=== PATIENT | female | born 1990 | race Caucasian/White ===

== ENCOUNTER → 2017-09-23 19:04 | Observation (INO) ==
[2017-09-23 17:37] LABS: Bilirubin,Urine Negative (Negative); Blood,Urine Negative (Negative); Clarity,Urine Clear (Clear); Color,Urine Yellow (Yellow); Glucose,Urine (UA) Normal (Normal); Ketones,Urine Negative (Negative); Leukocyte Esterase,Urine Negative (Negative); Nitrite,Urine Negative (Negative); PH,Urine 6.5 pH Units (5.0-8.0); Protein,Urine Negative (Neg-Trace); Specific Gravity,Urine 1.024 (1.010-1.025); Urobilinogen,Urine Normal (Normal)
[2017-09-23 18:43] LABS: Amphetamine Screen,Urine Negative ng/mL (Cutoff=1000); Barbiturate Screen,Urine Negative ng/mL (Cutoff=200); Benzodiazepines Screen,Urine Negative ng/mL (Cutoff=200); Cannabinoid Screen,Urine Negative ng/mL (Cutoff = 50); Cocaine Screen,Urine Negative ng/mL (Cutoff= 300); Opiate Screen,Urine Negative ng/mL (Cutoff=300); Phencyclidine Screen,Urine Negative ng/mL (Cutoff=25)
--- NOTE | 2017-09-23 18:58 | OB/GYN Progress Note ---
Date of Encounter: 09/23/17 Time of Encounter: 16:30 - Assessment and Plan (1) 20 weeks gestation of Current Visit: Yes Status: Acute Continue care as scheduled labor precautions given Discharge home (2) Abdominal cramping affecting Current Visit: Yes Status: Acute UA-negative May take Mg OTC Subjective - Subjective Principal diagnosis: Pelvic pressure in Interval history: Ms. Willard is a 26-year-old who presents today with complaints of abdominal cramping and pelvic pressure that has been happening for the last 2-3 days. She endorses good movement and denies leakage of fluid and vaginal bleeding. She is concerned that she is in labor. Antepartum ROS: new complaints, movement normal, contractions, no loss of fluid, no vaginal bleeding Objective - Vital Signs Vital Signs: Intake and Output 09/23/17 09/23/17 09/23/17 07:59 15:59 23:59 Other: Weight 80.4 kg Patient Weight 09/23/17 23:59 Weight 80.4 kg - Exam FHR: auscultation normal FHR comments: heart rate 140 No toco activity Auscultation: bilateral: normal Abdomen: Present: normal appearance, soft, gravid Uterus: Present: normal, firm Cervical dilation: 0 Cervix effacement: 0 station: high Comments: SVE per patient request.
== END | disposition home or self-care (01) ==
LOC: 1NENULAB
PROVIDERS: ADMIT Obstetrics & Gynecology; ATTEND Obstetrics & Gynecology

== ENCOUNTER → 2017-10-21 17:52 | Observation (INO) ==
--- NOTE | 2017-10-21 17:58 | OB/GYN Progress Note ---
Date of Encounter: 10/21/17 Time of Encounter: 17:56 - Assessment and Plan (1) 24 weeks gestation of Status: Acute Continue routine care as scheduled labor precautions given Discharge home Subjective - Subjective Principal diagnosis: normal IUP at 24 weeks Interval history: Ms. Willard is a 26-year-old female at 24 weeks 3 days gestation. She presents with concerns for decreased movement as well as poison ian. She denies contractions, leakage of fluid, vaginal bleeding. She was advised she would need to present to the emergency room for her concerns of poison ian. Antepartum ROS: new complaints, no loss of fluid, no vaginal bleeding, no movement normal, no contractions Objective - Vital Signs Vital Signs: Intake and Output 10/21/17 10/21/17 10/21/17 07:59 15:59 23:59 Other: Weight 82.1 kg Patient Weight 10/21/17 23:59 Weight 82.1 kg - Exam FHR: auscultation normal FHR comments: 140's Auscultation: bilateral: normal Abdomen: Present: normal appearance, soft, gravid Uterus: Present: normal, firm
== END | disposition home or self-care (01) ==
LOC: 1NENULAB
PROVIDERS: ADMIT Obstetrics & Gynecology; ATTEND Obstetrics & Gynecology

== ENCOUNTER → 2017-12-26 23:25 | Observation (INO) ==
--- NOTE | 2017-12-26 21:56 | OB/GYN Progress Note ---
Date of Encounter: 12/26/17 Time of Encounter: 21:47 - Assessment and Plan (1) Vaginal discharge during in third trimester Current Visit: Yes Status: Acute NST appropriate for gestation Vaginal discharge on SSE - collected for vaginosis panel No fluid seen from cervix or pooling on exam, nitrazine negative Urinalysis - suspicious for UTI; Sent Rx of Cephalexin home with patient to fill. Encouraged to continue to monitor blood sugar as she has glycosuria tonight Vaginosis panel - Discharge home with labor precautions Follow up in the office as scheduled and PRN. (2) 33 weeks gestation of Current Visit: Yes Status: Acute Subjective - Subjective Principal diagnosis: Vaginal Discharge Interval history: Ms Willard is a at 33 weeks 6 days that presents to labor and delivery with c/o vaginal discharge for several days and contractions that awoke her from her sleep last night. She also c/o urinary urgency. She denies headache, vision changes, epigastric pain, and vaginal bleeding. She states positive movement. 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 She states she has been testing her blood sugars and they have been normal since she declined a GTT. Antepartum ROS: loss of fluid, movement normal, contractions (irregular), no vaginal bleeding Objective - Exam FHR: auscultation normal, category 1 FHR comments: 155 category I. Uterine irritability per toco. Abdomen: Present: normal appearance, soft, gravid Uterus: Present: normal. Absent: firm, tenderness Cervical dilation: 1 Cervix effacement: Thick station: -1
[2017-12-26 22:05] LABS: Bilirubin,Urine Negative (Negative); Blood,Urine Negative (Negative); Clarity,Urine Clear (Clear); Color,Urine Yellow (Yellow); Glucose,Urine (UA) >=1000 mg/dL (Normal); Ketones,Urine Negative (Negative); Leukocyte Esterase,Urine Small (Negative); Nitrite,Urine Negative (Negative); PH,Urine 5.5 pH Units (5.0-8.0); Protein,Urine Trace mg/dL (Neg-Trace); Urobilinogen,Urine Normal (Normal)
[2017-12-26 22:08] LABS: Bacteria,Urine Moderate per hpf (None-Few); Hyaline Casts,Urine None Seen per lpf (None-Few); Squamous Epithelial Cell,Urine Many per lpf (None-Few)
[2017-12-26 22:29] LABS: Amphetamine Screen,Urine Negative ng/mL (Cutoff=1000); Barbiturate Screen,Urine Negative ng/mL (Cutoff=200); Benzodiazepines Screen,Urine Negative ng/mL (Cutoff=200); Cannabinoid Screen,Urine Negative ng/mL (Cutoff = 50); Cocaine Screen,Urine Negative ng/mL (Cutoff= 300); Opiate Screen,Urine Negative ng/mL (Cutoff=300); Phencyclidine Screen,Urine Negative ng/mL (Cutoff=25)
[2017-12-26 23:43] LABS: Candida DNA DETECTED (Not Detect); Gardnerella DNA Not Detected (Not Detect); Trichomonas DNA Not Detected (Not Detect)
== END | disposition home or self-care (01) ==
LOC: 1NENULAB
PROVIDERS: ADMIT Advanced Practice Midwife; ATTEND Advanced Practice Midwife

== ENCOUNTER → 2018-01-25 00:25 | Observation (INO) ==
[2018-01-24 23:34] LABS: Amphetamine Screen,Urine Negative ng/mL (Cutoff=1000); Barbiturate Screen,Urine Negative ng/mL (Cutoff=200); Benzodiazepines Screen,Urine Negative ng/mL (Cutoff=200); Cannabinoid Screen,Urine Negative ng/mL (Cutoff = 50); Cocaine Screen,Urine Negative ng/mL (Cutoff= 300); Opiate Screen,Urine Negative ng/mL (Cutoff=300); Phencyclidine Screen,Urine Negative ng/mL (Cutoff=25)
--- NOTE | 2018-01-25 00:38 | Discharge Summary ---
Date of Encounter: 01/25/18 Time of Encounter: 00:37 - Discharge Diagnosis (1) 38 weeks gestation of Priority: Primary Status: Acute Comments: Follow-up in office as scheduled Labor parameters discussed Discharge home (2) Abdominal cramping affecting Priority: Secondary Status: Acute Comments: Patient monitored for 1 hour and no cervical change Agreeable for discharge - Discharge Medications Home Medications: Cephalexin [Keflex] 500 mg PO BID 10 Days #20 capsule 12/26/17 [Rx] Erythromycin OPTH Oint 1 appl LEFT EYE QID #1 tube 01/24/18 [Rx] Allergies/Adverse Reactions: 3 Allergy/AdvReac Type Severity Reaction Status Date / Time Penicillins Allergy Intermediate Swelling Verified 01/24/18 18:33 of Lip/Tongue/Throat Data Procedures and tests throughout hospitalization: Laboratory Tests 01/24/18 22:50 Urine Opiates Screen Negative Ur Barbiturates Screen Negative Ur Phencyclidine Scrn Negative Ur Amphetamines Screen Negative U Benzodiazepines Scrn Negative Urine Cocaine Screen Negative U Marijuana (THC) Screen Negative Ur Drug Screen Interp See Below Labs on day of discharge: Labs from last 24 hours 01/24/18 22:50 Urine Opiates Screen Negative Ur Barbiturates Screen Negative Ur Phencyclidine Scrn Negative Ur Amphetamines Screen Negative U Benzodiazepines Scrn Negative Urine Cocaine Screen Negative U Marijuana (THC) Screen Negative Ur Drug Screen Interp See Below Date of admission: 01/24/18 22:48 Discharging clinician: Kacie Robledo Anticipated date of discharge: 01/25/18 - Patient Status Disposition: Home, Self-Care Condition: Good Functional capacity at discharge: independent ambulation Overall status at discharge: patient is progressing back to baseline - Discharge Instructions Follow Up With: Kacie Ferrell CNM [Advanced Practice Nurse] - Additional Instructions: LABOR AND DELIVERY DISCHARGE INSTRUCTIONS Signs and Symptoms to be Reported to your Doctor Immediately: * Sudden gush, continuous or intermittent lead of fluid from vagina (note the time of gush and color of fluid) * Onset of bright red vaginal bleeding with or without pain (if you had a vaginal exam during this visit you may notice some dark red spotting. This is normal.) * Contractions that are 5 minutes apart (from the beginning of one contraction to the beginning of the next) and last 45-60 seonds; contractions that you can no longer walk, talk or laugh through. * A change in the baby's activity. This could be an increase or decrease in activity. * Severe headache which does not go away with tylenol. * Sudden swelling in the face, hands, arms and/or legs. * Upper abdominal pain - sometimes associated with heartburn or nausea and is not relieved by Maalox, Mylanta or Tums. * Kick Counts __ One hour after a meal, lay down on one side in a quiet place. Count the number of time the baby moves during an hour. 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 She was monitored for an hour and made no cervical change. Agreeable to discharge home with routine follow-up Time Attestation: Total time spent providing and/or coordinating discharge services: Time Spent: Less than 30 minutes Exam - Constitutional General appearance IM: A&O X 3 - Respiratory Respiratory exam: Present: CTAB - Cardiovascular Cardiovascular exam IM: Present: RRR, +S1, +S2 - GI/Abdominal GI/Abdominal exam IM: normal bowel sounds, no peritoneal signs - Rectal Rectal exam: deferred - Uterine Tone: Firm - Extremities Exam Extremities exam IM: Present: normal capillary refill, normal inspection, radial pulses palpable and symmetrical - Neurological Exam Neurological exam: alert, CN II-XII intact, normal gait, oriented X3, reflexes normal, no focal deficits, strengths equal and symetr throughout - VTE Reasons for not Prescribing Prophylaxis: Treatment not Indicated - Low risk for VTE
== END | disposition home or self-care (01) ==
LOC: 1NENULAB
PROVIDERS: ADMIT Advanced Practice Midwife; ATTEND Advanced Practice Midwife

== ENCOUNTER 2018-02-01 06:00 | Inpatient (IN) ==
[2018-02-01] MEDS ORDERED: Metoclopramide 10 MG/2 ML VIAL IVP PRN (06:19)
[2018-02-01] MEDS ORDERED: Ondansetron 4 MG/2 ML VIAL IVP PRN (06:19)
[2018-02-01] MEDS ORDERED: *HR* Nalbuphine 10 MG/ML AMPUL IVP PRN (06:19)
[2018-02-01] MEDS ORDERED: Famotidine 20 MG/2 ML VIAL IVP PRN (06:19)
[2018-02-01] MEDS ORDERED: Naloxone 0.4 MG/ML INJ IVP PRN (06:19)
[2018-02-01] MEDS ORDERED: miSOPROStol 100 MCG TABLET PO PRN (06:19)
[2018-02-01] MEDS ORDERED: Ringers Solution, Lactated 1,000 ML IVC SCH (06:30)
[2018-02-01] MEDS ORDERED: Oxytocin 20 units/ LR 1000 mL 20 UNIT/1,000 ML BAG IVC SCH ×2 (06:30→14:55)
[2018-02-01 06:39] LABS: Basophils # 0.1 K/mcL (0.0-0.2); Basophils % 0.4 %; Eosinophils # 0.1 K/mcL (0.0-0.6); Eosinophils % 0.7 %; Hematocrit 34.8 % (35.3-44.9); Hemoglobin 11.7 g/dL (11.5-15.4); Immature Granulocytes % 0.8 % (0-4); Lymphocytes % 15.6 %; Mean Corpuscular HGB Conc 33.6 g/dL (31.6-35.5); Mean Corpuscular Hemoglobin 26.1 pg (28.0-33.3); Mean Corpuscular Volume 77.5 fL (83.0-100.0); Mean Platelet Volume 10.5 fL (9.4-12.4); Monocytes # 0.8 K/mcL (0.0-1.3); Monocytes % 6.4 %; Neutrophils # 9.6 K/mcL (1.6-8.9); Platelet Count 292 K/mcL (140-400); Red Blood Count 4.49 M/mcL (3.82-4.97); Red Cell Distribution Width 12.8 % (11.5-14.5); Segmented Neutrophils % 76.1 %
[2018-02-01 06:44] LABS: Amphetamine Screen,Urine Negative ng/mL (Cutoff=1000); Barbiturate Screen,Urine Negative ng/mL (Cutoff=200)
[2018-02-01 06:45] LABS: Benzodiazepines Screen,Urine Negative ng/mL (Cutoff=300); Cannabinoid Screen,Urine Negative ng/mL (Cutoff = 50); Cocaine Screen,Urine Negative ng/mL (Cutoff= 300); Opiate Screen,Urine Negative ng/mL (Cutoff=300); Phencyclidine Screen,Urine Negative ng/mL (Cutoff=25)
--- NOTE | 2018-02-01 07:11 | OB/GYN History & Physical ---
Date of Encounter: 02/01/18 Time of Encounter: 07:03 Assessment and Plan (1) 39 weeks gestation of Current visit: Yes Status: Acute Admitted for IOL due to term and distance from hospital. Cytotec as ordered Further induction as necessary Epidural or IV pain medication as patient requests. (2) Bicornate uterus complicating Current visit: Yes Status: Acute Patient had an US with MFM during this . Previous uncomplicated vaginal delivery. Qualifiers: Trimester: third trimester Qualified Code(s): O34.03 - Maternal care for unspecified congenital malformation of uterus, third trimester; Q51.3 - Bicornate uterus (3) NST (non-stress test) reactive Current visit: Yes Status: Acute FHR 130 bpm, moderate variability, +15x15 accels, rare variable decelerations. History of Present Illness Chief complaint: Induction of labor at 39.1 weeks HPI: Ms. Willard is a 27 year old female at 39w1d who present to L&D for scheduled induction of labor for term . She reports positive movement and denies vaginal bleeding and fluid leakage. This patient has had one previous vaginal delivery and she reports no lacerations with that delivery. She does have a bicornate uterus and was seen by M for ultrasound during this . She denies any pain at this time and is unsure of her plan for pain medication with this labor. Blood Type A+ GBS negative HBSAG negative T. Pall negative Varicella negative Rubella negative Past Med Surg Social Fam HX - Past Medical History Source: patient Medical history: no medical history Psychiatric history: no psych history - Past Surgical History Surgical History: no surgical history Additional surgical history: IUD - Social History Smoking Status: Former smoker Smokeless Tobacco Status: No Alcohol use: none Drug use: none Current living situation: Home - Independent Activity Level: Independent ambulation Recent Out of Country Travel Within the Last 8 Weeks: No Exposure or Possible Exposure to Illness During Travel: No - Family History Mother History Unknown: Yes Adopted: No Family Member Ethnicity: Non- Twin of Family Member: Yes, Fraternal Living Status: Still Living Hx Family Cardiac Disorders: No Hx Family Respiratory Disorders: No Hx Family Cancer: No Hx Family GI Disorders: No Hx Family Genitourinary Disorders: No Hx Family Endocrine Disorder: No Hx Family Musculoskeletal Disorders: No Hx Family Neuromuscular Disorders: No Hx Family Neurologic Disorders: No Hx Family HEENT Disorders: No Hx Family Autoimmune Disorders: No Hx Family Reproductive Disorders: No Hx Family Psychosocial Disorders: No Hx Family Medical Disorders: No Obstetrical History - Pregnancies : 2 Para: 1 Term: 1 : 0 Ab's: 0 Livin Medications and Allergies Allergy/AdvReac Type Severity Reaction Status Date / Time Penicillins Allergy Intermediate Swelling Verified 01/24/18 18:33 of Lip/Tongue/Throat Review of System OB - Constitutional Constitutional ROS IM: as per HPI - Cardiovascular Cardiovascular: as per HPI - Respiratory Respiratory: as per HPI - Gastrointestinal Gastrointestinal: as per HPI - Genitourinary Genitourinary: as per HPI Exam - Constitutional Constitutional: well developed, well nourished, no acute distress, average body habitus - Neck Neck exam: full ROM - Lungs Respiratory exam: CTAB - Cardiovascular Cardiovascular exam: RRR, +S1, +S2 - Breasts Breast: bilateral: normal - Abdomen Abdomen: Present: bowel sounds normal, gravid, non tender - Extremities Extremities exam: full ROM, normal capillary refill, normal inspection - Vagina Vagina: Present: normal moisture - Cervix Dilation: 3 Effacement: 80 (per RN exam) Station: -2 - Uterus Uterus exam: Present: normal size Results Result Diagrams: 02/01/18 06:20 Abnormal lab results WBC 12.6 K/mcL (4.3-11.1) H 02/01/18 06:20 Hct 34.8 % (35.3-44.9) L 02/01/18 06:20 MCV 77.5 fL (83.0-100.0) L 02/01/18 06:20 MCH 26.1 pg (28.0-33.3) L 02/01/18 06:20 Neutrophils # 9.6 K/mcL (1.6-8.9) H 02/01/18 06:20 All other labs normal. - VTE Reasons for not Prescribing Prophylaxis: Treatment not Indicated - Low risk for VTE
--- NOTE | 2018-02-01 09:45 | Event Note ---
Date of Encounter: 02/01/18 Time of Encounter: 09:43 Patient sitting in bed. Discussed POC with patient. Patient denies any questions or concerns. IOL and POC reviewed with Dr. Schulte. Dr. Schulte was aware of scheduled induction and approved or POC.
--- NOTE | 2018-02-01 11:14 | OB Labor Progress Note ---
Date of Encounter: 02/01/18 Time of Encounter: 11:12 Labor Progress Note - Subjective Subjective: Patient reports contractions are getting stronger. Patient denies need for intervention for pain at this time. Discussed POC with patient. Patient denies any questions or concerns. - Cervix Cervix: 3/70/-1 - Heart Tones Heart Tones: 135 bpm moderate variability +15x15 accel no decels noted. Cat. 1 tracing - [place]: 4-5 min apart - Interventions Interventions: SVE, AROM moderate amount of clear fluid. Patient tolerated well. - Plan Plan: Continue labor management. Dr. Schulte updated on patient's status and POC. Patient may have nubain or epidural when desires.
[2018-02-01] MEDS ORDERED: EPHEDrine 50 MG/ML VIAL IVP PRN (11:26)
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
[2018-02-01] MEDS ORDERED: Epidural Premix (fent/bupiv) 110 ML EP SCH (11:30)
--- NOTE | 2018-02-01 13:57 | OB/GYN Procedure Note ---
Delivery - Delivery Date: 02/01/18 Provider: Reba Vasquez Intrapartum events: none Delivery induction: AROM, misoprostol Delivery monitor: external FHT, external uterine Anesthesia: none Quantitated Blood Loss: 150 - (s) A Delivery Date: 02/01/18 Delivery Time: 13:37 Presentation: vertex Position: YESI Route of delivery: Gender: Female Viability: Viable Pounds: 6 Ounces: 11 Weight Gram: 3040 kg at 1 minute: 8 at 5 mins: 9 Shoulder Dystocia: not encountered Specimens collected: cord blood Placenta: spontaneous Cord: nuchal cord (x1 loose), 3 umbilical vessels, delivered through nuchal - Repair Episiotomy: none Laceration Description: Superficial - Complications Delivery complications: none - Disposition Mom disposition: stable in LDR [place] disposition: stable in LDR - Comments Comments: AT patient's bedside helping with labor support and breathing techniques. Patient reports she needs to push. SVE 9.5/100/1. Patient prepped for vaginal delivery. SVE patient complete. With next contraction under maternal effort spontaneously delivered a viable female . A nuchal x1 noted loose that the delivered through. No meconium or shoulder dystocia encountered. placed on maternal abdomen. Cord was clamped and cut after pulsations ceased. A small superficial periurethral laceration noted that was hemostatic. Placenta delivered spontaneously and intact. EBL 150cc.Pericare provided. All counts correct. Both mother and stable in LDR for [address] Schulte notified of delivery.
[2018-02-01] MEDS ORDERED: Lanolin 7 G OINT...G. TP PRN (14:55)
[2018-02-01] MEDS ORDERED: Measles/Mumps/Rubella Vacc 0.5 ML VIAL SQ PRN (14:55)
[2018-02-01] MEDS ORDERED: Acetaminophen 325 MG TABLET PO PRN (14:55)
[2018-02-01] MEDS ORDERED: Benzocaine/Menthol 56 GM AEROSOL SPRAY TP PRN (14:55)
[2018-02-01] MEDS: Ibuprofen 600 MG TABLET PO PRN (15:11)
[2018-02-02] MEDS: Ibuprofen 600 MG TABLET PO PRN (01:38)
[2018-02-02 08:53] VITALS: BP 113/77
[2018-02-02] MEDS ORDERED: Prenatal Vit/FA 1 EACH TABLET PO SCH (09:00)
--- NOTE | 2018-02-02 10:11 | Discharge Summary ---
Date of Encounter: 02/02/18 Time of Encounter: 10:08 - Discharge Diagnosis (1) Vaginal delivery Priority: Primary Status: Acute Comments: S/P vaginal delivery day 1 VSS Pain well controlled lochia light and without clots voiding without difficulty tolerating regular diet; passing flatus breast feeding and bottle feeding discharge home today POC per consult with Dr Crawford - Discharge Medications Prescriptions: Ibuprofen [Motrin] 600 mg PO Q6HR PRN #30 tablet PRN Reason: Cramping Breast Pump [BREAST PUMP] 1 each .ROUTE AD #1 each Docusate [Colace] 100 mg PO BID #30 capsule Ferrous Sulfate 325 mg PO DAILY #90 tablet Home Medications: Acetaminophen [Tylenol] 650 mg PO Q6HR PRN tablet 02/02/18 [Rx] Benzocaine/Menthol [place] [Dermoplast [place]] 1 appl TP QID PRN aerosol 02/02/18 [Rx] Breast Pump [BREAST PUMP] 1 each .ROUTE AD #1 each 02/02/18 [Rx] Docusate [Colace] 100 mg PO BID #30 capsule 02/02/18 [Rx] Ferrous Sulfate 325 mg PO DAILY #90 tablet 02/02/18 [Rx] Ibuprofen [Motrin] 600 mg PO Q6HR PRN #30 tablet 02/02/18 [Rx] Lanolin [Lansinoh] 1 appl TP TID PRN oint...g. 02/02/18 [Rx] Vit/FA 1 each PO DAILY tablet 02/02/18 [Rx] Allergies/Adverse Reactions: Allergy/AdvReac Type Severity Reaction Status Date / Time Penicillins Allergy Intermediate Swelling Verified 01/24/18 18:33 of Lip/Tongue/Throat Data Procedures and tests throughout hospitalization: Laboratory Tests 02/01/18 02/01/18 06:20 06:20 WBC 12.6 H RBC 4.49 Hgb 11.7 Hct 34.8 L MCV 77.5 L MCH 26.1 L MCHC 33.6 RDW 12.8 Plt Count 292 MPV 10.5 Immature Gran % 0.8 Seg Neutrophils % 76.1 Lymphocytes % 15.6 Monocytes % 6.4 Eosinophils % 0.7 Basophils % 0.4 Neutrophils # 9.6 H Lymphocytes # 2.0 Monocytes # 0.8 Eosinophils # 0.1 Basophils # 0.1 Urine Opiates Screen Negative Ur Barbiturates Screen Negative Ur Phencyclidine Scrn Negative Ur Amphetamines Screen Negative U Benzodiazepines Scrn Negative Urine Cocaine Screen Negative U Marijuana (THC) Screen Negative Ur Drug Screen Interp See Below Date of admission: 02/01/18 06:08 Primary care physician: PCP [facility] Consults: 02/01/18 14:55 Consult to Project Technician [CONS] Routine Comment: Vaginal delivery, consult needed Discharging clinician: Kacie Ferrell Anticipated date of discharge: 02/02/18 - Patient Status Disposition: Home, Self-Care Condition: Good Functional capacity at discharge: independent ambulation Overall status at discharge: patient is progressing back to baseline - Discharge Instructions Follow Up With: NONE,PCP [Primary Care Provider] - Mary Ann Lau CNM [Non-Partnered Physician] - - Diet and Activity Activity: increase activity as tolerated Diet: regular diet Hospital Course Reason for admission: induction of labor, IUP at term Delivery: Episiotomy: none Laceration: other (superficial lacs) Other procedures: none complications: none Discharge diagnosis: IUP at term delivered [place] baby: female Time spent discussing smoking cessation with patient: 3 to 10 minutes Time Attestation: Total time spent providing and/or coordinating discharge services: Time Spent: Less than 30 minutes Exam - Constitutional Vitals: Temp Pulse Resp BP Pulse Ox 97.8 F 77 14 113/77 97 02/02/18 08:53 02/02/18 08:53 02/02/18 08:53 02/02/18 08:53 02/02/18 08:53 General appearance IM: cooperative, A&O X 3, pleasant - Respiratory Respiratory exam: Present: CTAB - Cardiovascular Cardiovascular exam IM: Present: RRR, +S1, +S2 - GI/Abdominal GI/Abdominal exam IM: normal bowel sounds, soft - Rectal Rectal exam: deferred - Uterine Tone: Firm Uterus Position: At Umbilicus, Midline - Extremities Exam Extremities exam IM: Present: normal capillary refill, normal inspection, radial pulses palpable and symmetrical - Neurological Exam Neurological exam: alert, oriented X3
== END 2018-02-02 17:46 | disposition home or self-care (01) | DRG 560 ==
LOC: 1NENULAB 06:08 → 1NENUOBS 16:54
PROVIDERS: ADMIT Advanced Practice Midwife; ATTEND Advanced Practice Midwife